=== PATIENT | female | born 1965 | race Two or more races ===

== ENCOUNTER 2023-07-27 14:08 | Outpatient (CLI) | payer OTHER | END 2023-07-27 14:28 | disposition home or self-care (01) | LOC: TOM 14:08 | PROVIDERS: ATTEND Internal Medicine | DX: R05.8 Other specified cough (principal); R06.02 Shortness of breath; R53.81 Other malaise ==

== ENCOUNTER 2023-08-04 14:22 | Outpatient (CLI) | payer OTHER | END 2023-08-04 14:31 | disposition home or self-care (01) | LOC: MRI 14:22 | PROVIDERS: ATTEND Internal Medicine | DX: M48.02 Spinal stenosis, cervical region (principal) | CPT/HCPCS: 72141 ==